=== PATIENT | male | born 1990 | race Two or more races ===

== ENCOUNTER 2021-06-17 09:53 | Inpatient (IN) | payer OTHER ==
[~2021-06-17] VITALS: Ht 180.3 cm; Wt 79.5 kg
[2021-06-17 11:27] LABS: COVID AG,FIA SOURCE NASOPHARYNGEAL
[2021-06-17 11:28] LABS: BASOPHILS % (AUTO) 0.1 % (0.0-2.0); EOSINOPHILS % (AUTO) 0 % (1.0-6.0); HEMATOCRIT 41.8 % (41-53); HEMOGLOBIN 14.3 g/dL (13.5-17.5); LYMPHOCYTES # (AUTO) 1.1 K/uL (1.0-4.8); LYMPHOCYTES % (AUTO) 11.9 % (22.0-44.0); MEAN CORPUSCULAR HEMOGLOBIN 28.3 pg (26.0-34.0); MEAN CORPUSCULAR HGB CONC 34.2 G/dL (31.0-37.0); MEAN CORPUSCULAR VOLUME 83 fL (80-100); MONOCYTES # (AUTO) 0.2 K/uL (0.1-1.0); MONOCYTES % (AUTO) 2.1 % (2.0-9.0); NEUTROPHILS # (AUTO) 7.9 K/uL (1.8-7.7); PLATELET COUNT (AUTO) 342 K/uL (150-450); RED BLOOD CELL COUNT(AUTO) 5.05 MIL/uL (4.50-5.90); RED CELL DISTRIBUTION WIDTH 13.6 % (11.5-14.5)
[2021-06-17 11:29] LABS: NEUTROPHILS % (AUTO) 85.9 % (40.0-70.0)
[2021-06-17 11:38] LABS: ANION GAP 6 mmol/L (8-16); CALCIUM, TOTAL 9.1 mg/dL (8.8-10.5); CARBON DIOXIDE 29 mmol/L (22-29); CHLORIDE 102 mmol/L (98-107); CREATININE 0.71 mg/dL (0.60-1.30); GLOMERULAR FILTR. RATE CALC > 60 mL/min (>60); GLUCOSE,RANDOM 112 mg/dL (70-110); POTASSIUM 4.5 mmol/L (3.5-5.1); SODIUM SERUM 137 mmol/L (136-145); UREA NITROGEN, BLOOD 16 mg/dL (7-18)
[2021-06-17 11:44] LABS: ALANINE AMINOTRANSFERASE 20 U/L (12-78); ALBUMIN 3.7 g/dL (3.4-5.0); ALKALINE PHOSPHATASE 69 U/L (46-116); ASPARTATE AMINOTRANSFERASE 11 U/L (15-37); BILIRUBIN,TOTAL 0.5 mg/dL (0.1-1.0); TOTAL PROTEIN, SERUM 7.7 g/dL (6.4-8.2)
[2021-06-17] MEDS ORDERED: PROMETHAZINE HCL 25 MG TABLET PO PRN (14:30)
[2021-06-17] MEDS ORDERED: ACETAMINOPHEN 325 MG TABLET PO PRN (14:30)
[2021-06-17] MEDS ORDERED: ALBUTEROL SULFATE 2.5 MG/0.5 ML NEB SOLUTION NEB PRN (14:30)
[2021-06-17] MEDS ORDERED: MAG HYDROX/AL HYDROX/SIMETH ES 30 ML SUSPENSION UDCUP PO PRN (14:30)
[2021-06-17] MEDS ORDERED: MAGNESIUM HYDROXIDE SUSPENSION 30 ML UDCUP PO PRN (14:30)
[2021-06-17] MEDS ORDERED: LOPERAMIDE HCL 2 MG/15 ML SUSPENSION UDCUP PO PRN (14:30)
[2021-06-17] MEDS ORDERED: IPRATROPIUM BROMIDE 0.5 MG/2.5 ML NEB SOLUTION NEB PRN (14:30)
[2021-06-17] MEDS ORDERED: TraZODone HCL 50 MG TABLET PO PRN (14:30)
[2021-06-17] MEDS ORDERED: BISACODYL 10 MG RECTAL RECTAL SUPPOSITORY PR PRN (14:30)
[2021-06-17 14:48] VITALS: BP 113/76
[2021-06-17 15:48] VITALS: BP 110/62
[2021-06-17 16:47] VITALS: BP 120/64
[2021-06-17 17:55] VITALS: BP 113/62
[2021-06-17] MEDS: DICYCLOMINE HCL 10 MG CAPSULE PO PRN (19:51)
[2021-06-17] MEDS: HydrOXYzine PAMOATE 50 MG CAPSULE PO PRN (19:51)
[2021-06-17] MEDS: ACETAMINOPHEN 325 MG TABLET PO PRN (19:51)
[2021-06-17] MEDS: ONDANSETRON HCL 4 MG/2 ML VIAL IVP PRN (19:51)
[2021-06-17] MEDS: HEPARIN SODIUM,PORCINE 5,000 UNITS/ML VIAL SQ SCH (19:52)
[2021-06-17] MEDS: SODIUM CHLORIDE 0.45% 1,000 ML IV SCH (19:56)
[2021-06-17 21:41] VITALS: BP 107/57
[2021-06-17] MEDS ORDERED: INFLUENZA VIRUS VACCINE QVS 2021-22 (6MO+)/PF 60 MCG/0.5 ML SYRINGE IM. ONE (23:45)
[2021-06-17] MEDS: CloNIDine HCL 0.1 MG TABLET PO PRN (23:55)
[2021-06-17 23:57] VITALS: BP 108/60
[2021-06-17] MEDS: BACLOFEN 10 MG TABLET PO PRN (23:57)
[2021-06-18] MEDS: ONDANSETRON HCL 4 MG/2 ML VIAL IVP PRN ×3 (02:14→14:54)
[2021-06-18] MEDS: DICYCLOMINE HCL 10 MG CAPSULE PO PRN ×2 (02:14→14:34)
[2021-06-18] MEDS: IBUPROFEN 600 MG TABLET PO PRN ×2 (02:14→14:33)
[2021-06-18] MEDS: HEPARIN SODIUM,PORCINE 5,000 UNITS/ML VIAL SQ SCH ×3 (02:17→16:10)
[2021-06-18] MEDS: ACETAMINOPHEN 325 MG TABLET PO PRN (02:17)
[2021-06-18 04:58] VITALS: BP 111/65
[2021-06-18 05:30] LABS: AMPHET/METH SCREEN,URINE POSITIVE (NEGATIVE); BARBITURATE SCREEN, URINE NEGATIVE (NEGATIVE); BENZODIAZEPINES SCREEN,URINE NEGATIVE (NEGATIVE); CANNABINOID SCREEN,URINE NEGATIVE (NEGATIVE); COCAINE SCREEN,URINE NEGATIVE (NEGATIVE); METHADONE SCREEN, URINE NEGATIVE (NEGATIVE); OPIATE SCREEN,URINE POSITIVE (NEGATIVE)
[2021-06-18 05:31] LABS: PHENCYCLIDINE SCREEN,URINE NEGATIVE (NEGATIVE)
[2021-06-18] MEDS: SODIUM CHLORIDE 0.45% 1,000 ML IV SCH ×2 (08:06→23:33)
[2021-06-18] MEDS: HydrOXYzine PAMOATE 50 MG CAPSULE PO PRN ×2 (08:07→14:34)
[2021-06-18] MEDS: PANTOPRAZOLE SODIUM 40 MG/VIAL IVP SCH (08:07)
[2021-06-18] MEDS: LORazepam 1 MG TABLET PO PRN ×2 (08:08→16:09)
[2021-06-18] MEDS: BACLOFEN 10 MG TABLET PO PRN ×2 (08:08→16:10)
[2021-06-18 08:22] VITALS: BP 110/75
[2021-06-18 11:14] VITALS: BP 118/65
[2021-06-18] MEDS: CloNIDine HCL 0.1 MG TABLET PO PRN (14:33)
[2021-06-18 16:27] VITALS: BP 116/77
[2021-06-18 20:00] VITALS: BP 108/67
[2021-06-19] MEDS: HEPARIN SODIUM,PORCINE 5,000 UNITS/ML VIAL SQ SCH ×3 (00:02→16:10)
[2021-06-19] MEDS: ZOLPIDEM TARTRATE 5 MG TABLET PO PRN ×2 (00:06→21:39)
[2021-06-19] MEDS: IBUPROFEN 600 MG TABLET PO PRN (00:06)
[2021-06-19 05:23] VITALS: BP 137/77
[2021-06-19 08:20] VITALS: BP 138/76
[2021-06-19] MEDS: PANTOPRAZOLE SODIUM 40 MG/VIAL IVP SCH (08:51)
[2021-06-19 10:09] LABS: BASOPHILS % (AUTO) 0.2 % (0.0-2.0); EOSINOPHILS % (AUTO) 0.1 % (1.0-6.0); HEMATOCRIT 39.8 % (41-53); HEMOGLOBIN 13.8 g/dL (13.5-17.5); LYMPHOCYTES # (AUTO) 1.4 K/uL (1.0-4.8); LYMPHOCYTES % (AUTO) 14.8 % (22.0-44.0); MEAN CORPUSCULAR HEMOGLOBIN 28.2 pg (26.0-34.0); MEAN CORPUSCULAR HGB CONC 34.6 G/dL (31.0-37.0); MEAN CORPUSCULAR VOLUME 82 fL (80-100); MONOCYTES # (AUTO) 0.6 K/uL (0.1-1.0); MONOCYTES % (AUTO) 6.5 % (2.0-9.0); NEUTROPHILS # (AUTO) 7.3 K/uL (1.8-7.7); NEUTROPHILS % (AUTO) 78.4 % (40.0-70.0); PLATELET COUNT (AUTO) 307 K/uL (150-450); RED BLOOD CELL COUNT(AUTO) 4.88 MIL/uL (4.50-5.90); RED CELL DISTRIBUTION WIDTH 13.3 % (11.5-14.5)
[2021-06-19 10:17] LABS: ANION GAP 9 mmol/L (8-16); CALCIUM, TOTAL 8.7 mg/dL (8.8-10.5); CARBON DIOXIDE 26 mmol/L (22-29); CHLORIDE 105 mmol/L (98-107); CREATININE 0.71 mg/dL (0.60-1.30); GLOMERULAR FILTR. RATE CALC > 60 mL/min (>60); GLUCOSE,RANDOM 87 mg/dL (70-110); POTASSIUM 3.6 mmol/L (3.5-5.1); SODIUM SERUM 140 mmol/L (136-145); UREA NITROGEN, BLOOD 10 mg/dL (7-18)
[2021-06-19 10:22] LABS: ALANINE AMINOTRANSFERASE 15 U/L (12-78); ALBUMIN 3.5 g/dL (3.4-5.0); ALKALINE PHOSPHATASE 61 U/L (46-116); ASPARTATE AMINOTRANSFERASE 9 U/L (15-37); BILIRUBIN,TOTAL 0.4 mg/dL (0.1-1.0); TOTAL PROTEIN, SERUM 7.5 g/dL (6.4-8.2)
[2021-06-19] MEDS: SODIUM CHLORIDE 0.45% 1,000 ML IV SCH (11:20)
[2021-06-19 19:45] VITALS: BP 112/82
[2021-06-20] MEDS: HEPARIN SODIUM,PORCINE 5,000 UNITS/ML VIAL SQ SCH ×2 (01:44→08:25)
[2021-06-20 04:12] VITALS: BP 139/77
[2021-06-20] MEDS: HydrOXYzine PAMOATE 50 MG CAPSULE PO PRN (05:06)
[2021-06-20] MEDS: CloNIDine HCL 0.1 MG TABLET PO PRN (05:06)
[2021-06-20 07:59] VITALS: BP 122/78
[2021-06-20] MEDS: PANTOPRAZOLE SODIUM 40 MG/VIAL IVP SCH (08:25)
[2021-06-20] MEDS ORDERED: ACET-3207 PO (11:34)
[2021-06-20] MEDS ORDERED: BISA5TAB12 PO (11:36)
[2021-06-20] MEDS ORDERED: AUD NEB (11:36)
[2021-06-20] MEDS ORDERED: HYDR50CA7 PO (11:38)
[2021-06-20] MEDS ORDERED: LOPE2CAP14 PO (11:41)
[2021-06-20] MEDS ORDERED: MOM30 PO (11:42)
[2021-06-20] MEDS ORDERED: IPRNEB IH (11:44)
== END 2021-06-20 13:50 | DRG 897 ==
LOC: EMS 09:53 → 6S 13:29 → UNDODISIN 06-19 21:45
PROVIDERS: ADMIT Hospitalist; ATTEND Hospitalist
DX: F11.23 Opioid dependence with withdrawal (principal); Z20.822 Contact with and (suspected) exposure to COVID-19; F17.210 Nicotine dependence, cigarettes, uncomplicated; F15.10 Other stimulant abuse, uncomplicated; Z71.6 Tobacco abuse counseling
CPT/HCPCS: 80053; 85025; 99285; C9113; G0480; J1644; J2405